=== PATIENT | female | born 1955 | race Asian ===

== ENCOUNTER 2020-08-29 10:41 | Emergency (ER) | payer MEDICARE, OTHER ==
[~2020-08-29] VITALS: Ht 157.5 cm; Wt 131.8 kg
[2020-08-29] MEDS ORDERED: ATEN-72 PO (13:51)
[2020-08-29 13:54] VITALS: BP 123/75
== END 2020-08-29 14:03 | disposition home or self-care (01) ==
LOC: EMS 10:41
DX: U07.1 COVID-19 (principal); R19.7 Diarrhea, unspecified
CPT/HCPCS: Z7502

== ENCOUNTER 2024-12-06 11:51 | Emergency (ER) | payer MEDICARE, OTHER ==
[~2024-12-06] VITALS: Ht 157.5 cm; Wt 85.5 kg
[~2024-12-06 11:51] MED LIST: ATEN-72 PO
[2024-12-06] MEDS ORDERED: LORA1TAB25 PO ×2 (11:55→12:43)
[2024-12-06 11:56] VITALS: TEMP 98.4
[2024-12-06 12:15] VITALS: BP 115/75; PULSE 69; RESP 17; O2SAT 98
== END 2024-12-06 13:08 | disposition home or self-care (01) ==
LOC: EMS 12:05
DX: H93.13 Tinnitus, bilateral (principal); F41.9 Anxiety disorder, unspecified; I10 Essential (primary) hypertension; Z88.5 Allergy status to narcotic agent; Z79.899 Other long term (current) drug therapy
CPT/HCPCS: 99283; Z7502